=== PATIENT | female | born 1990 | race Two or more races ===

== ENCOUNTER → 2019-12-17 | Outpatient (CLI) | payer BC ==
--- NOTE | 2019-12-18 09:35 | RAD ---
AP views of the thoracic and lumbar spine Clinical indications: Scoliosis. COMPARISON: May 02, 2009. FINDINGS: Dextroscoliosis of the thoracic spine is seen. This measures 36 degrees using the Lynne method and the superior endplate of T5 and the inferior endplate of T11. Transitional vertebra of the lumbar spine is seen and this will be labeled as T for the sake of consistency. There is sacralization of the left side and lumbarization on the right side of this vertebra. Levoscoliosis of the lumbar spine is seen which measures 14 degrees using the superior endplate of T12 and the superior endplate of L4. No significant change from the prior study. No significant pelvic tilt downward is evident. IMPRESSION: No significant change in S-shaped scoliosis of the thoracic and lumbar spine from 2009. Electronically signed by: Mendel Livingston MD (12/18/2019 9:32 AM) [facility] [place]
== END ==
LOC: PMG 14:35
PROVIDERS: ATTEND Registered Nurse
DX: M41.85 Other forms of scoliosis, thoracolumbar region (principal)
CPT/HCPCS: 72081